=== PATIENT | female | born 1955 | race African-American/Black ===

== ENCOUNTER 2016-09-11 12:54 | Emergency (ER) | payer MEDICAID ==
[~2016-09-11] VITALS: Ht 162.6 cm; Wt 60.0 kg
[~2016-09-11 12:54] MED LIST: ALBU4TAB6 INH; AMLO10TA80 PO; AMLO5TAB4 PO; DIPH25CA83 PO; DOCU-138 PO; FLUT1DIS IH; Glucometer; HYDR-519 PO; LISI-604 PO; NAPR-679 PO; OMEP20TA80 PO; P20 PO; SITA50TA3 PO; [UNRECOGNIZED DRUG - SUPPLY]
[2016-09-11] MEDS ORDERED: ALBUTEROL (0.083%) 2.5MG/3ML NEB HHN STA (15:21)
[2016-09-11] MEDS ORDERED: IPRATROPIUM BROMIDE (0.02%) 0.5MG/2.5ML NEB HHN STA (15:21)
[2016-09-11] MEDS ORDERED: ONDANSETRON HCL 4MG/2ML VIAL IV ONE (15:30)
[2016-09-11] MEDS ORDERED: FOLIC ACID 1 MG, THIAMINE HCL 100 MG, MVI, ADULT NO.1 10 ML in DEXTROSE 5% WATER 1,000 ML IV ONE ×4 (15:30)
[2016-09-11 15:49] LABS: BASOPHILS % 0.8 % (0.0-2.0); DIFFERENTIAL COMMENT 0; EOSINOPHILS % 2.1 % (0.0-5.0); HEMATOCRIT. 36.8 % (36.0-48.0); HEMOGLOBIN. 12.1 g/dL (12.0-16.0); LYMPHOCYTES % 28.4 % (20.0-50.0); MEAN CORPUSCULAR HEMOGLOBIN 33.7 pg (28.0-32.0); MEAN CORPUSCULAR HGB CONC 32.9 g/dL (31.0-37.0); MEAN CORPUSCULAR VOLUME 102.4 fL (81.0-99.0); MEAN PLATELET VOLUME 7.7 fl (7.4-10.4); MONOCYTES % 8.4 % (2.0-8.0); NEUTROPHILS % 60.3 % (40.0-76.0); PLATELET 300 x1000/uL (130-400); RED BLOOD CELL COUNT 3.59 mill/uL (4.2-5.4); RED CELL DISTRIBUTION WIDTH 15.3 % (11.6-14.6); WHITE BLOOD COUNT 10.5 x1000/uL (4.5-11.0)
[2016-09-11 15:56] LABS: ALBUMIN 3.6 g/dL (3.4-5.0); ANION GAP 19; CALCIUM 9.1 mg/dL (8.5-10.1); CARBON DIOXIDE 25 mEq/L (21-32); CHLORIDE 106 mEq/L (98-107); INDEX HEMOLYSI 1 (1-3); INDEX ICTERIC 1 (1-4); INDEX LIPEMIC 1 (1-3); UREA NITROGEN BLOOD 8 mg/dL (7-21)
[2016-09-11 16:01] LABS: ACETAMINOPHEN < 2 ug/mL (10-30); ALANINE AMINOTRANSFERASE 34 IU/L (13-61)
[2016-09-11 16:07] LABS: eGFR > 60 mL/min (>60)
[2016-09-11 16:14] LABS: CLARITY URINE CLEAR (CLEAR); COLOR URINE YELLOW (YELLOW); GLUCOSE URINE NEGATIVE (NEGATIVE); KETONES URINE NEGATIVE (NEGATIVE); LEUKOCYTE ESTERASE URINE NEGATIVE (NEGATIVE); NITRITE URINE NEGATIVE (NEGATIVE); OCCULT BLOOD URINE TRACE (NEGATIVE); PROTEIN URINE NEGATIVE (NEGATIVE); SPECIFIC GRAVITY URINE 1.006 (1.005-1.030); UROBILINOGEN URINE 0.2 E.U./dL (0.2-1.0)
[2016-09-11 16:14] LABS: ETHANOL BLOOD 300 mg/dL
[2016-09-11 16:25] LABS: *AMPHETAMINES SCREEN URINE NEGATIVE (NEGATIVE); *BARBITURATES SCREEN URINE NEGATIVE (NEGATIVE); *BENZODIAZEPINES SCREEN URINE NEGATIVE (NEGATIVE); *COCAINE SCREEN URINE NEGATIVE (NEGATIVE); CANNABINOID URINE SCREEN NEGATIVE (NEGATIVE); ECSTASY MDMA SCREEN URINE NEGATIVE (NEGATIVE); METHADONE URINE SCREEN NEGATIVE (NEGATIVE); OPIATES URINE SCREEN NEGATIVE (NEGATIVE); PHENCYCLIDINE URINE SCREEN NEGATIVE (NEGATIVE)
[2016-09-11 16:27] LABS: BACTERIA URINE TRACE; RBC URINE 0-2 /hpf (0-2); WBC URINE 0-2 /hpf (0-2)
[2016-09-11 16:28] LABS: SQUAMOUS EPITHELIAL CELL URINE FEW /lpf (RARE/1+)
[2016-09-11 22:00] VITALS: BP 129/78
[2016-09-11] MEDS ORDERED: KETOROLAC 60MG/2ML VIAL IM NR (22:00)
== END 2016-09-11 22:43 | disposition home or self-care (01) ==
LOC: ER 13:42
DX: F10.229 Alcohol dependence with intoxication, unspecified (principal); J06.9 Acute upper respiratory infection, unspecified; M25.551 Pain in right hip; J45.909 Unspecified asthma, uncomplicated; G89.29 Other chronic pain; E11.9 Type 2 diabetes mellitus without complications; I10 Essential (primary) hypertension; J44.9 Chronic obstructive pulmonary disease, unspecified; Y90.8 Blood alcohol level of 240 mg/100 ml or more; Z96.641 Presence of right artificial hip joint
CPT/HCPCS: 36415; 71010; 73502; 80053; 80305; 80329; 81001; 85025; 94640; 96365; 96366; 96375; 99285; G0482; J1885; J2405; J3411; J3490; J7070; J7611; Z7610; 80307